=== PATIENT | female | born 1980 | race Caucasian/White ===

== ENCOUNTER 2020-10-12 06:49 | Day surgery (SDC) | payer OTHER, MEDICAID, SELFPAY ==
[2020-10-12] VITALS (9 sets, daily range): BP systolic 109–122; BP diastolic 65–85; PULSE 79–88; RESP 14–18; TEMP 36.6–37; O2SAT 97–100; BMI 22.2
--- NOTE | 2020-10-12 | PATH_ITS ---
[facility] Accession Number: [id number] . 01 Material submitted: . PART A: vulva - LEFT VULVAR LESION PART B: body - LEFT POSTERIOR PART C: body - RIGHT LATERAL PART D: body - ANTERIOR MIDLINE . 01 Diagnosis: A. Left Vulva, Excision: Irritated intradermal melanocytic nevus. . B. Left Posterior, Excision: Consistent with benign hemorrhoidal tissue. . C. Right Lateral, Excision: Consistent with irritated benign hemorrhoidal tissue. . D. Anterior Midline, Excision: Consistent with irritated benign hemorrhoidal tissue. [facility] 10/17/2020 1124 Local . 01 Comment: C and D) There is focal chronic inflammation and squamous verrucous keratosis present, favored to represent reactive changes in the setting of prior irritation. . 01 Electronically signed: . Bong Chavez MD, Dermatopathologist NPI- [id number] . 01 Gross description: . A. The specimen is received in formalin, labeled left vulvar lesion, and consists of a 2.0 x 1.1 x 0.7 cm, abraham-pink, wrinkled skin. The margin is inked blue. The specimen is bisected and entirely submitted in cassette A1. B. The specimen is received in formalin, labeled left posterior, and consists of a 2.0 x 1.0 x 0.1 cm, abraham-pink to pink-purple skin shave. The margin is inked blue. The specimen is bisected and entirely submitted in cassette B1. C. The specimen is received in formalin, labeled right lateral, and consists of three abraham-pink to masters fragments of wrinkled skin ranging from 1.0 cm to 1.6 cm and measuring 2.0 x 1.8 x 1.0 cm in aggregate. The specimen is entirely submitted. C1: Two bisected fragments (blue and green). C2: One bisected fragment (blue). D. The specimen is received in formalin, labeled anterior midline, and consists of a 1.5 x 0.8 x 0.3 cm, abraham-pink fragment of skin. The margin is inked blue. The specimen is bisected and entirely submitted in cassette D1. ([id number]) /Onur 10/14/2020 [facility] . 01 Pathologist provided ICD-10: D22.9, K64.4 . 01 CPT . 445713, 380711, 356713, [id number] Performed at: 01 [facility] [address] [place] [address] [address] [facility], [place], [place] [id number] MD Jovi London MD Phone: [phone]
[2020-10-12] MEDS: LACTATED RINGERS 1,000 ML 100 ML IV ×2 (07:34→08:58)
[2020-10-12 07:44] LABS: COVID19 -Nasal RAPID Negative (Negative)
--- NOTE | 2020-10-12 07:44 | PM.HP.1 ---
History of Present Illness History of Present Illness Date Patient Seen: 10/12/20 Time Patient Seen: 07:44 Chief complaint: [facility] Narrative: Patient is a 39-year-old 5 para 2 who presents for an excision of a vulvar mass, removal and replacement of Nexplanon. Patient History Medical History H/O gestational diabetes mellitus, not currently H/O: hypertension Hx of hemorrhoids Hx of ovarian cyst Surgical History History of section Family & Social History Family History Grandmother Hypertension Grandfather Hypertension Leukemia Social History: household members significant other,friend(s) Tobacco & Substance use: Tobacco type e-cigarettes Smoking Status Current every day smoker alcohol intake never Substance Use Type does not use Meds Home Medications and Allergies Home Medications Medication Instructions Recorded Confirmed Type No Known Home Medications 10/12/20 10/12/20 History Allergies Allergy/AdvReac Type Severity Reaction Status Date / Time No Known Drug Allergies Allergy Verified 10/12/20 07:15 Exam Vital Signs (past 8 hours): - 10/12/20 07:16 Temperature 98.6 F Pulse Rate 84 Respiratory Rate 16 Blood Pressure 122/85 Pulse Oximetry 100 Oxygen Delivery Method Room Air Narrative Exam Narrative: HEENT: No thyromegaly, no anterior cervical or supraclavicular lymphadenopathy. Lungs:Clear to auscultation bilaterally, no wheezes. Cardiovascular: Regular rate and rhythm, no murmurs, rubs, or gallops. Abdomen: Well-healed Pfannenstiel scars. No hepatosplenomegaly. No masses palpable. External genitalia: Vulvar mass on the left side measuring 2.5 x 3 cm. Vagina: Normal Cervix: Normal parous Bimanual exam: 6 Week size anteverted uterus. Mobile.] Rectal: No masses. External hemorrhoids Assessment & Plan Assessment & Plan narrative: Assessment: 39-year-old 5 para 2 with a vulvar mass and a Nexplanon that has been in greater than 3 years Negative test Plan: Removal and replacement of Nexplanon Excision of vulvar mass The risks, benefits, and alternatives to the procedure were explained to the patient. The risks including bleeding and infection. She understands these risks and agrees to proceed. A full par Q was held and consent form was signed. COVID-19 COVID-19 status: Result pending Time Spent With Patient Time with patient: 15-24 minutes
--- NOTE | 2020-10-12 07:46 | PM.PREOP ---
Pre-operative Note COVID-19 COVID-19 status: Result pending Interval Note History & Physical reviewed/Exam performed by Physician: Yes Changes to H&P: No H&P completed within 30 days and has changed as indicated here:: 10/12/20
--- NOTE | 2020-10-12 07:51 | PM.PREOP ---
Pre-operative Note COVID-19 COVID-19 status: Negative Result date/Date tested (Pos, Neg/Pending): 10/12/20 Interval Note History & Physical reviewed/Exam performed by Physician: Yes Changes to H&P: No
--- NOTE | 2020-10-12 08:32 | SUR.OPER ---
Lithotomy on padded OR bed, head on pillow, arms secured on padded arm boards at <90 degrees abduction. Legs secured in padded yellow fins stirrups.
[2020-10-12] MEDS: BUPIVACAINE 0.25% W/ EPI (PF) 10 ML VIAL 20 ML INJ (08:47)
--- NOTE | 2020-10-12 08:57 | PM.GYNOP.1 ---
Operative Date/Time/Diagnoses Date of procedure: 10/12/20 Time of procedure: 08:57 Pre-op diagnosis: Left vulvar mass Nexplanon in place for greater than 3 years Post-op diagnosis: same Procedure & Clinicians Procedure: Procedures Operation Date: 10/12/20 07:45 Actual Procedures Side Surgeon p Excision Vulvar Mass, Removal and Re-insertion of Nexplanon Willow Gonzalez MD s Hemorrhoidectomy José Miguel Vincent MD Indications: Left vulvar mass Nexplanon in place greater than 3 years Surgeon: Willow Gonzalez Anesthesia Type: General (LMA) and Local Operative Notes Findings: 3 cm x 2 and 0.5 cm left vulvar mass Closure Type: primary Specimen(s): other (Left vulvar mass) Estimated blood loss (mL): 3 Blood products transfused: none Procedure in detail: After informed consent was obtained, the patient was taken to the operating room where she was placed in the dorsal supine position. After adequate LMA general anesthesia was achieved, she was placed in the dorsal lithotomy position, and prepped and draped in the usual sterile fashion. A time-out was performed. The underside of the left arm was prepped with chlorhexidine. The Nexplanon was palpated. 4 cc of 0.25% Marcaine with epinephrine were injected at the insertion site and along the length of the Nexplanon. Using a # 15 blade, a 3 mm incision was made. Using a curved hemostat the Nexplanon was brought to the opening and removed without difficulty. Under sterile conditions a new Nexplanon was inserted by tenting up the skin and going to the hub of the industrial controls technician and releasing the Nexplanon. The Nexplanon could be palpated just below the skin. Pressure was held for hemostasis. Two Steri-Strips were placed over the incision. Hemostasis was achieved. An Allevyn dressing was placed. Attention was then turned to the vulva. On the left side there was a 3 cm x 2.5 cm vulvar mass. Approximately 8 cc of 0.25% Marcaine with epinephrine were injected below the mass. Using a # 10 blade an elliptical incision was made around the mass and including a small amount of underlying subcutaneous tissue. The Bovie was used for hemostasis. For deep sutures with 2-0 Vicryl were placed to reapproximate the subcutaneous layer. Two 0 chromic was used with simple interrupted sutures, 6 of them, to close the skin. Hemostasis was achieved. The remainder of the procedure is dictated by Dr. Vincent. Complications: none Post-operative Condition: stable Disposition: PACU Plan for aftercare: Home after recovery
[2020-10-12] MEDS: DIBUCAINE 1% OINT 28 GM 1 APPLIC TOP (09:10)
--- NOTE | 2020-10-12 09:15 | PM.OP.1 ---
Operative Date/Time/Diagnoses Date of procedure: 10/12/20 Time of procedure: 09:15 Pre-op diagnosis: Internal and external hemorrhoids. Post-op diagnosis: same Procedure & Clinicians Procedure: Two column internal and external hemorrhoidal excision and an additional excision of To external hemorrhoid remnant skin tags. Same procedure as scheduled: Yes Indications: Problematic hemorrhoids chronic internal and external without prolapse Surgeon: José Miguel Vincent Click Yes if Unassisted: Yes Anesthesia Type: General Operative Notes Findings: Two columns of internal hemorrhoids associated with external tags and 2 additional external hemorrhoid remnant tags which were removed. Closure Type: not applicable Specimen(s): other (Hemorrhoids and skin tags) Prosthetic devices, grafts, tissues, transplants, or devices: None Estimated Blood Loss (mL): 15 Procedure in detail: The gynecologic procedure was completed. Patient was left in lithotomy. Digital exam was unremarkable. There was no palpable mass. Circumferential exam with a bivalve anoscope showed 2 columns of internal hemorrhoids and an additional external residual from what was probably a thrombosed external hemorrhoid. Beginning in the left posterior location not far from midline I lifted the external tag that was present and excised it and continued in word sparing the sphincter and excised a small internal component. Prior to transecting it I placed a 3-0 Vicryl suture at the head of this hemorrhoid column and ligated the column. The hemorrhoid was transected and sent as specimen. The defect created was closed with a running 3-0 Vicryl that I had used to suture the head of the column. This was brought out into the perianal skin to close the entire defect. Attention was then turned to the right lateral location. It was handled in an identical fashion. There was a small tag next to this that was external which I also excised and closed the defect created by 3-0 Vicryl. Finally in the anterior midline there was an external tag not associated with an internal hemorrhoid. This was excised and closed with interrupted 3-0 Vicryl. Local anesthetic was infiltrated and the anal canal packed with Nupercainal on Gelfoam. Dressing was applied and patient was awakened, extubated and taken to recovery area in good condition Complications: none Post-operative Condition: stable Disposition: PACU
[2020-10-12] MEDS: OXYCODONE/ACETAMINOPHEN 5/325 TABLET 1 TAB PO ×2 (09:42→10:15)
--- NOTE | 2020-10-12 11:21 | SUR.PHASEII ---
Late entry: Extensive d/c instructions discussed with both pt and her boyfriend,the boyfriend voiced an understanding the pt stated that she wouldn't remember anything, reminded the pt that all the d/c instructions would be on paper that would go home with her. Basilia pad free on any drainage from basilia area and anus, L arm dressing c/d/i as well. Pt left when ready and left in stable condition. inflatable rubber tube for sitting basilia pads dubuticaine and basilia bottle all sent home with pt as well, and card from her [employer] as well.
== END 2020-10-12 10:50 | disposition home or self-care (01) ==
PROVIDERS: Specialist; Referring Provider Obstetrics & Gynecology; Visit Provider Obstetrics & Gynecology
PROC: (CPT 11983; principal; 2020-10-12 07:45)
PROC: (CPT 46260; 2020-10-12 07:45)
DX: K64.8 Other hemorrhoids (principal); K64.4 Residual hemorrhoidal skin tags; D22.5 Melanocytic nevi of trunk; Z30.8 Encounter for other contraceptive management; F17.210 Nicotine dependence, cigarettes, uncomplicated
CPT/HCPCS: 46260; 11983; 12042; 11423; 81025; 87635; J0330; J1100; J1885; J2405; J2704; J3010

== ENCOUNTER 2020-10-20 02:08 | Observation (INO) | payer OTHER, MEDICAID, SELFPAY ==
[2020-10-20 02:19] VITALS: BP 145/94; PULSE 98; RESP 21; TEMP 38; O2SAT 98; BMI 22.2
--- NOTE | 2020-10-20 02:26 | ED_ITS ---
HPI - Abdominal Pain General Chief Complaint: Abdominal Pain Stated Complaint: SURGICAL COMPLICATIONS Time Seen by Provider: 10/20/20 02:08 Source: patient Mode of arrival: Ambulatory Limitations: no limitations History of Present Illness HPI narrative: Patient is a 39-year-old female who presents with severe rectal pain. She is post Guy 8. After hemorrhoid surgery, valvular skin tag removed an Implanon removed. She says that she did not follow the instructions and has been taking pain medications but no stool softeners. She has not had any bowel movement. She started taking a stool softener is yesterday she felt like she had very small amount of stool however her rectum is extremely painful. She is afraid that she ruined her surgery she has not had large stool passed through there. She denies any painful or frequent urination. No nausea or vomiting. She is found to have a low-grade temperature of 100.4? is in the emergency department. She was unaware that she had a fever. She is crying and in quite a lot of pain. MD complaint: other Related Data Home Medications Medication Instructions Recorded Confirmed ibuprofen 400 mg PO Q6H PRN 10/20/20 10/20/20 oxycodone 5 - 10 mg PO Q4H PRN 10/20/20 10/20/20 Allergies Allergy/AdvReac Type Severity Reaction Status Date / Time No Known Drug Allergies Allergy Verified 10/12/20 07:15 Review of Systems Review of Systems ROS Unobtainable: All systems reviewed & are unremarkable except as noted in HPI and below Constitutional Constitutional: Reports body ache(s), Reports fever(s) and Denies frequent falls ENT Ears, Nose, Mouth, and Throat: Denies dizziness Cardiovascular Cardiovascular: Denies chest pain, Denies lightheadedness and Denies dyspnea Respiratory Respiratory: Denies cough and Denies dyspnea Gastrointestinal Gastrointestinal: Reports as per HPI, Denies abdominal pain, Reports constip ation and Denies nausea Genitourinary Genitourinary: Denies urinary hesitancy and Denies urinary urgency Genitourinary: Denies urinary hesitancy and Denies urinary urgency Musculoskeletal Musculoskeletal: Denies back pain and Denies numbness Integumentary/Breasts Skin/Breast: Reports as per HPI, Denies pruritus, Denies erythema, Denies rash and Denies wounds Neurologic Neurologic: Denies behavioral changes, Denies confusion, Denies dizziness, Denies frequent falls and Denies numbness Psychiatric Psychiatric: Denies behavioral changes and Denies confusion Patient History Medical History H/O gestational diabetes mellitus, not currently H/O: hypertension Hx of hemorrhoids Hx of ovarian cyst Internal hemorrhoids Surgical History History of section Family History Grandmother Hypertension Grandfather Hypertension Leukemia Social History marital status: unknown household members: other occupational status: unemployed Smoking Status: Current every day smoker alcohol intake: never substance use type: does not use Smoking Status: Current every day smoker Substance Use Type: does not use Exam Initial Vital Signs Initial Vital Signs: Vital Signs Temperature 100.4 F H 10/20/20 02:19 Pulse Rate 98 H 10/20/20 02:19 Respiratory Rate 21 10/20/20 02:19 Blood Pressure 145/94 H 10/20/20 02:19 Pulse Oximetry 98 10/20/20 02:19 GENERAL: Crying tearful 39-year-old thin female appears in severe pain HEENT: Head atraumatic,EOMI, pupils reactive, face symmetric, moist mucous membranes CARDIOVASCULAR: Regular rate and rhythm without murmurs, rubs or gallops. RESPIRATORY: Breath sounds equal bilaterally, no wheezes rales or rhonchi. ABDOMEN: Soft, nontender. Normoactive bowel sounds all 4 quadrants. No guarding or rebound. RECTAL: Sutures noted to be intact is no significant erythema although there is smell I do not see gross pus. She isn't exquisitely tender. There is 1 area in the perineum is where it appears a suture dehisced. No significant erythema LEAD SOFTWARE ENGINEER: External vagina appears within normal limits. No sign of infection externally EXTREMITIES: Normal range of motion, no clubbing or edema. Neurovascularly intact NEUROLOGICAL: Alert and oriented x4.Normal gait and speech. SKIN: Warm, dry, no laceration, no petechiae, no rashes or lesions. Left arm implant on his site removal dressing is removed no erythema underneath appears not infected Course Orders Ordered: ED Orders 10/20/20 02:15 Complete Blood Count AUTO DIFF Stat Lactate (Lactic Acid) Stat 10/20/20 03:00 Comprehensive Metabolic Panel Stat Procalcitonin Stat 10/20/20 03:20 Blood Culture Stat 10/20/20 03:31 XR acute abdomen series Stat Acetaminophen (Acetaminophen 325 Mg Tablet) 650 mg PO Q6HR PRN PRN Reason: Fever/Mild Pain (1-3) Ondansetron HCl (Ondansetron 4 Mg/2 Ml Inj) 4 mg IV Q4HR PRN PRN Reason: Nausea And Vomiting Sodium Chloride (Sodium Chloride 0.9% Flush) 10 ml IV PRN PRN PRN Reason: Flush Sodium Chloride (Sodium Chloride 0.9% Flush) 10 ml IV BID TONA Discontinued Medications Sodium Chloride (Normal Saline 0.9%) 1,000 mls @ 1,000 mls/hr IV BOLUS ONE Stop: 10/20/20 04:29 Last Infusion: 10/20/20 05:29 Dose: Infused Documented by: Ceftriaxone Sodium/Dextrose (Rocephin) 1 gm in 50 mls @ 100 mls/hr IV NOW ONE Stop: 10/20/20 04:35 Last Infusion: 10/20/20 04:47 Dose: Infused Documented by: Metronidazole (Flagyl) 500 mg in 100 mls @ 100 mls/hr IV NOW ONE Stop: 10/20/20 05:05 Last Infusion: 10/20/20 05:29 Dose: Infused Documented by: Ketorolac Tromethamine (Ketorolac 60 Mg/2 Ml Vial) 15 mg IV NOW ONE Stop: 10/20/20 03:31 Last Admin: 10/20/20 03:57 Dose: 15 mg Documented by: Lidocaine HCl (Lidocaine 2% (Urojet) 5 Ml Gel) 5 ml TOP NOW ONE Stop: 10/20/20 03:56 Last Admin: 10/20/20 04:48 Dose: Not Given Documented by: Magnesium Citrate (Magnesium Citrate 300 Ml Solution) 300 ml PO NOW ONE Stop: 10/20/20 03:56 Last Admin: 10/20/20 04:47 Dose: Not Given Documented by: Methylnaltrexone [place] (Methylnaltrexone 12 Mg/0.6 Ml Vial) 8 mg SUBCUT NOW ONE Stop: 10/20/20 02:31 Last Admin: 04/09/21 04:46 Dose: Not Given Documented by: Mineral Oil (Mineral Oil 473 Ml Oil) 15 ml PO NOW ONE Stop: 10/20/20 04:07 Last Admin: 10/20/20 04:54 Dose: 15 ml Documented by: Vital Signs Vital signs: Vital Signs - 8 hr 10/20/20 02:19 Temperature 100.4 F H Pulse Rate 98 H Respiratory Rate 21 Blood Pressure 145/94 H Pulse Oximetry 98 MDM - Abdominal Pain Lab Data Attestation: I reviewed the patient's lab results. Result diagrams: 10/20/20 03:00 10/20/20 03:00 Labs: Lab Results 10/20/20 10/20/20 10/20/20 Range/Units 03:00 03:00 03:00 WBC 9.5 (4.5-11.0) X10^3/uL RBC 5.01 (4.0-5.2) X10^6/uL Hgb 14.1 (12.0-16.0) g/dL Hct 41.1 (36-46) % MCV 82.1 (80-100) fL MCH 28.1 (26-34) PG MCHC 34.2 (30-36) % RDW 13.7 (11.6-14.8) % Plt Count 431 H (150-400) X10^3/uL Neut % (Auto) 58.5 (50-75) % Lymph % (Auto) 29.5 (25-40) % [place] % (Auto) 8.9 (3-14) % Eos % (Auto) 2.3 (2-4) % Baso % (Auto) 0.8 (0-2) % Neut # (Auto) 5600 (3412-9603) /uL Lymph # (Auto) 2800 (2040-7356) /uL [place] # (Auto) 800 (0-900) /uL Eos # (Auto) 200 (0-450) /uL Baso # (Auto) 100 (0-100) /uL Sodium 141 (137-145) mmol/L Potassium 4.0 (3.4-5.1) mmol/L Chloride 105 (98-107) mmol/L Carbon Dioxide 27 (22-32) mmol/L BUN 15 (7-17) mg/dL Creatinine 0.79 (0.52-1.04) mg/dL Estimated GFR > 60.0 (>60) mL/min BUN/Creatinine Ratio 19.0 (6-22) Glucose 103 H (70-100) mg/dL Lactate 0.8 (0.7-2.1) mmol/L Calcium 9.8 (8.4-10.2) mg/dL Total Bilirubin 0.3 (0.2-1.3) mg/dL AST 27 (14-36) IU/L ALT 17 (<35) IU/L Alkaline Phosphatase 63 (38-126) U/L Total Protein 8.0 (6.3-8.2) g/dL Albumin 4.6 (3.5-5.0) g/dL Globulin 3.4 (1.7-4.1) g/dL Albumin/Globulin Ratio 1.4 (1.0-2.8) Procalcitonin 0.04 (<0.5) ng/mL Imaging Data Abdominal x-ray: Radiologist's Impression: Preliminary report bilateral hilar infiltrates. Supine and upright views of the abdomen demonstrate a large volume of stool within the colon. Nonobstructive bowel gas pattern without pneumoperitoneum. [facility] Narrative Medical decision making narrative: Patient is in severe pain due to no bowel movement and recent hemorrhoid surgery. Low-grade temperature of a 100.4? is also concerning. At this time still waiting for urine however unclear what her source is. She denies any cough or painful or frequent urination.Possible postoperative hemorrhage and infection. She overall does not appear septic no leukocytosis or elevated lactic acid. She is given lidocaine gel on her rectum and Toradol for pain. 4a.m. Dr. Vincent notified of patient and test results. At this time recommends admitting, Rocephin, Flagyl table splint and mineral oil and NPO status. Agrees with no CT at this current time. Discharge Plan Departure Patient Disposition: Admitted As Inpatient Clinical Impression: Fever postop, Constipation Admit Date/Time: 10/20/20 04:12 Admit Provider: José Miguel Vincent
[2020-10-20 03:15] LABS: Add Manual Diff / Slide Review NO; Basophils Absolute Auto 100 /uL (0-100); Basophils Percent Auto 0.8 % (0-2); Eosinophils Absolute Auto 200 /uL (0-450); Eosinophils Percent Auto 2.3 % (2-4); Hematocrit 41.1 % (36-46); Hemoglobin 14.1 g/dL (12.0-16.0); Lymphocytes Absolute Auto 2800 /uL (1100-4500); Lymphocytes Percent Auto 29.5 % (25-40); Mean Corpuscular HGB Conc 34.2 % (30-36); Mean Corpuscular Hemoglobin 28.1 PG (26-34); Mean Corpuscular Volume 82.1 fL (80-100); Monocytes Absolute Auto 800 /uL (0-900); Monocytes Percent Auto 8.9 % (3-14); Neutrophils Absolute Auto 5600 /uL (1500-7000); Neutrophils Percent Auto 58.5 % (50-75); Platelet Count 431 X10^3/uL (150-400); Red Blood Cell Count 5.01 X10^6/uL (4.0-5.2); Red Cell Distribution Width 13.7 % (11.6-14.8); White Blood Cell Count 9.5 X10^3/uL (4.5-11.0)
[2020-10-20 03:24] LABS: Lactate (Lactic Acid) 0.8 mmol/L (0.7-2.1)
[2020-10-20 03:25] LABS: Alanine Aminotransferase 17 IU/L (<35); Albumin 4.6 g/dL (3.5-5.0); Albumin Globulin Ratio 1.4 (1.0-2.8); Alkaline Phosphatase 63 U/L (38-126); Aspartate Aminotransferase 27 IU/L (14-36); Bilirubin Total 0.3 mg/dL (0.2-1.3); Blood Urea Nitrogen 15 mg/dL (7-17); Calcium 9.8 mg/dL (8.4-10.2); Carbon Dioxide 27 mmol/L (22-32); Chloride 105 mmol/L (98-107); Estimated Glomerular Filt Rate > 60.0 mL/min (>60); Globulin 3.4 g/dL (1.7-4.1); Glucose 103 mg/dL (70-100); HEMOLYSIS 19 (0-50); Sodium 141 mmol/L (137-145)
--- NOTE | 2020-10-20 03:26 | PC.NURSE ---
Pt with hx of difficult IV starts, required vein finder to locate a large/straight enough vein for labs and IV. Currently has 22g in left hand.
--- NOTE | 2020-10-20 03:31 | DI.RAD.S_ITS ---
PROCEDURE: XR ACUTE ABDOMEN SERIES INDICATIONS: constipation and fever post op TECHNIQUE: One view chest and two views of the abdomen were acquired. COMPARISON: None. FINDINGS: Surgical changes and devices: None. Chest: Bilateral perihilar opacifications which could represent pulmonary edema or pneumonia. Heart size is normal. No pleural effusions. No pneumoperitoneum. Abdomen: Bowel gas pattern is normal. Moderate amount of stool noted throughout the colon. No suspicious calcifications. Visualized solid organ contours appear normal. Bones: No suspicious bony lesions. IMPRESSION: 1. Bilateral perihilar lung opacities compatible with pulmonary edema versus pneumonia. 2. Moderate fecal loading throughout the colon. Dictated by: Josie Peterson MD, PhD on 10/20/2020 at 8:39 Approved by: Josie Peterson MD, PhD on 10/20/2020 at 8:40
[2020-10-20 03:42] LABS: Procalcitonin 0.04 ng/mL (<0.5)
[2020-10-20] MEDS: SODIUM CHLORIDE 0.9% 1,000 ML 1000 ML IV (03:57)
[2020-10-20] MEDS: KETOROLAC 60 MG/2 ML VIAL 15 MG IV (03:57)
[2020-10-20] MEDS: LIDOCAINE JELLY 2% 5 ML 5 APPLIC TOP (04:13)
[2020-10-20] MEDS: CEFTRIAXONE 1 GM/50 ML FROZ.PIGGY IV (04:15)
[2020-10-20] MEDS: metroNIDAZOLE 500 MG/100 ML PIGGYBACK 100 MG IV (04:36)
[2020-10-20] MEDS: MINERAL OIL 473 ML OIL 15 ML PO (04:54)
[2020-10-20 05:05] VITALS: BP 107/56; PULSE 93; RESP 22; TEMP 37.4; O2SAT 98
[2020-10-20 05:20] VITALS: BMI 22.4
[2020-10-20 05:26] LABS: COVID19 - ADMIT (NP swab/PCR) Negative (Negative)
[2020-10-20 05:30] VITALS: BP 130/65; PULSE 90; RESP 20; TEMP 37.2; O2SAT 97
--- NOTE | 2020-10-20 06:01 | PC.ADMIT ---
Patient admitted at 0520 from ER per stretcher. Able to walk from stretcher to bed with assistance but is weak and unsteady related to rectal discomfort. Reports feeling like she is having stool leaking out of rectum but no leakage noted. Is alert and oriented but keeps eyes mostly closed and speaking in very soft voice. Breath sounds CTA with RA sat of 97%. HRR. Denies nausea. States she has intermittent sharp abdominal pains but denies any pain at present time. Denies dysuria, frequency or urgency with urination. Is able to move herself but wanting to only lie on left side. Does have small area on perineum that appears to be open with dried blood noted but no redness or swelling. Fall risk score is moderate; verbalizes understanding to call for assistance when getting out of bed so bed alarm not activated at this time. Instructed that she is currently NPO and verbalizes understanding. Instructed in use of call light and bed controls. Is afebrile at this time. Cooperative but anxious. [address] Admission Note: The patient,Heather Rashid,39 y/o, was given written information regarding hospital policies, unit procedures and contact persons. Patient's smoking status: Current every day smoker. Vital Signs - 8 hr 10/20/20 02:19 10/20/20 05:05 10/20/20 05:30 Temperature 100.4 F H 99.4 F 98.9 F Pulse Rate 98 H 93 H 90 Respiratory Rate 21 22 20 Blood Pressure 145/94 H 107/56 L 130/65 Pulse Oximetry 98 98 97
[2020-10-20] MEDS: SODIUM CHLORIDE 0.9% FLUSH 10 ML IV (09:14)
[2020-10-20] MEDS: MAGNESIUM HYDROXIDE 30 ML UDC PO (10:42)
[2020-10-20 11:11] VITALS: BP 95/58; PULSE 77; RESP 18; TEMP 37.1; O2SAT 98
--- NOTE | 2020-10-20 13:00 | PC.NURSE ---
Day note: x 3 Large brown BM's, expresses relief.
--- NOTE | 2020-10-20 14:34 | PC.NURSE ---
Day note: Patient had x 3 Large BM's late morning, expressed significant relief from abdominal discomfort. No nausea. Afebrile. Non tender to abdomen. Tenderness to perineum, repositioned for relief. 1400: message sent to General surgery Dr. Vincent regarding BMs, afebrile, and would like PO intake. New order for Clear liquid diet. Patient tolerated clear liquid diet. 1421: Patient independently ambulated out of room dressed and states she needs to go home, states needs to smoke a cigarette and her boyfriend is leaving her house and she needs to be there. This RN discussed importance of hospitalization and new order to advanced diet, however states she will walk out and leave no matter what, very tearful and frustrated with situation at home. Signed against medical advice. IV removed. Patient home via private vehicle accompanied by Mother. Notified Dr. Vincent regarding patients disposition.
--- NOTE | 2020-10-20 15:16 | P.DS_ITS ---
History of Present Illness History of Present Illness Chief complaint: SURGICAL COMPLICATIONS Narrative: Patient is a woman who had a hemorrhoidectomy a little over week ago and has had 9 days of not having a bowel movement. She failed the follow the recommendations given to her to keep her stool soft. In any event she presented with a low-grade temperature and was admitted for IV antibiotics, attempt at sti mulating bowel function and hopefully early discharge. Unfortunately, before being seen by me she had 3 large bowel movements and had(per the nurse caring for her) some urgent problem with her boyfriend at home and signed out Against Medical Advice. It was reported that she was in no pain at the time of her discharge and was tolerating p.o. liquids without difficulty. I was not notified until after the fact. Therefore the patient was not examined by me prior to her departure, and no additional instructions were given to the patient. Discharge Providers Provider Date of admission: 10/20/20 04:12 Discharge Date: 10/20/20 (Left against medical advice) Discharge provider: José Miguel Vincent MD Summary Hospital Course Discharge Diagnosis: Constipation. Low-grade temperature of uncertain etiology. Recent hemorrhoidectomy, excision of a vaginal mass, and removal of an implant from her arm. Status at Discharge Cognitive/behavioral status at discharge: at baseline, oriented Overall status at discharge: patient is progressing back to baseline Exam Vital Signs (past 8 hours): - 10/20/20 11:11 Temperature 98.8 F Pulse Rate 77 Respiratory Rate 18 Blood Pressure 95/58 L Pulse Oximetry 98 Oxygen Delivery Method Room Air Oxygen Flow Rate 0 Objective Labs Result Diagrams: 10/20/20 03:00 10/20/20 03:00 Labs: Laboratory Results - last 24 hr 10/20/20 10/20/20 10/20/20 03:00 03:00 03:00 WBC 9.5 RBC 5.01 Hgb 14.1 Hct 41.1 MCV 82.1 MCH 28.1 MCHC 34.2 RDW 13.7 Plt Count 431 H Neut % (Auto) 58.5 Lymph % (Auto) 29.5 [place] % (Auto) 8.9 Eos % (Auto) 2.3 Baso % (Auto) 0.8 Neut # (Auto) 5600 Lymph # (Auto) 2800 [place] # (Auto) 800 Eos # (Auto) 200 Baso # (Auto) 100 Sodium 141 Potassium 4.0 Chloride 105 Carbon Dioxide 27 BUN 15 Creatinine 0.79 Estimated GFR > 60.0 BUN/Creatinine Ratio 19.0 Glucose 103 H Lactate 0.8 Calcium 9.8 Total Bilirubin 0.3 AST 27 ALT 17 Alkaline Phosphatase 63 Total Protein 8.0 Albumin 4.6 Globulin 3.4 Albumin/Globulin Ratio 1.4 Procalcitonin 0.04 SARS-CoV-2 (PCR) 10/20/20 04:20 WBC RBC Hgb Hct MCV MCH MCHC RDW Plt Count Neut % (Auto) Lymph % (Auto) [place] % (Auto) Eos % (Auto) Baso % (Auto) Neut # (Auto) Lymph # (Auto) [place] # (Auto) Eos # (Auto) Baso # (Auto) Sodium Potassium Chloride Carbon Dioxide BUN Creatinine Estimated GFR BUN/Creatinine Ratio Glucose Lactate Calcium Total Bilirubin AST ALT Alkaline Phosphatase Total Protein Albumin Globulin Albumin/Globulin Ratio Procalcitonin SARS-CoV-2 (PCR) Negative PFSH Medical History H/O gestational diabetes mellitus, not currently H/O: hypertension Hx of hemorrhoids Hx of ovarian cyst Internal hemorrhoids Surgical History History of section Family History Grandmother Hypertension Grandfather Hypertension Leukemia Social History marital status: unknown household members: other occupational status: unemployed Smoking Status: Current every day smoker alcohol intake: never substance use type: does not use Discharge Plan Discharge Plan Patient Disposition: Left Against Medical Advice Provider Discharge Comment: Patient left against medical advice. I was not made aware of this until after she had already gone. Discharge orders & Medications Prescriptions: Continued ibuprofen 400 mg Tablet 400 mg PO Q6H PRN (Reason: pain) RF: 0 oxycodone 5 mg Tablet 5 - 10 mg PO Q4H PRN (Reason: pain) RF: 0
== END 2020-10-20 14:40 | disposition left against medical advice (07) ==
LOC: ED 04:11 → AC 09:54
PROVIDERS: Admitting Provider Specialist; Emergency Provider Emergency Medicine; Referring Provider Emergency Medicine; Visit Provider Specialist
DX: K59.09 Other constipation (principal); Z98.890 Other specified postprocedural states; F17.210 Nicotine dependence, cigarettes, uncomplicated; Z20.822 Contact with and (suspected) exposure to COVID-19; Z53.29 Procedure and treatment not carried out because of patient's decision for other reasons
CPT/HCPCS: 36415; 74022; 80053; 83605; 84145; 85025; 87040; 87635; 96361; 96365; 96367; 96375; 99284; C9803; G0378; J1885